=== PATIENT | male | born 2000 | race Hispanic/Latino ===

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

== ENCOUNTER 2022-06-17 16:16 | Emergency (ER) | payer MEDICAID ==
[~2022-06-17] VITALS: Ht 167.6 cm; Wt 49.9 kg
[~2022-06-17 16:16] MED LIST: IBUP-44 PO
[2022-06-17] MEDS ORDERED: TERB25PO MC (18:17)
[2022-06-17 18:18] VITALS: BP 135/71
== END 2022-06-17 18:24 | disposition home or self-care (01) ==
LOC: EDH 16:16
DX: B35.4 Tinea corporis (principal)
CPT/HCPCS: 99282